=== PATIENT | female | born 1950 | race Caucasian/White ===

== ENCOUNTER → 2023-12-04 15:08 | Outpatient (REF) | payer MEDICARE, OTHER, SELFPAY | LOC: HWRAD 15:08 | PROVIDERS: ATTENDING PHYSICIAN Internal Medicine Endocrinology, Diabetes & Metabolism; FAMILY PHYSICIAN Emergency Medicine | DX: E04.2 Nontoxic multinodular goiter (principal) | CPT/HCPCS: 76536 ==

== ENCOUNTER → 2024-04-09 09:23 | Outpatient (REF) | payer MEDICARE, OTHER, SELFPAY ==
[2024-04-09 11:31] LABS: % Basophils 0.3 % (0-2); % Eosinophils 3.6 % (0-6); % Immature Granulocytes 0.5 % (0-0.5); % Lymphocytes 23.6 % (20.5-51.1); % Monocytes 8.6 % (1.7-9.3); % Neutrophils 63.4 % (42.2-75.2); Absolute Eosinophils 0.2 10^3/uL (0-0.7); Absolute Lymphocytes 1.5 10^3/uL (1.2-3.4); Absolute Monocytes 0.6 10^3/uL (0.1-0.6); Absolute Neutrophils 4.1 10^3/uL (1.4-6.5); Hematocrit 40.8 % (37.0-47.0); Hemoglobin 14.1 g/dL (12.0-16.0); Mean Corp Hgb Conc. 34.6 g/dL (33.0-37.0); Mean Corpuscular Hgb 30.3 pg (27.0-31.0); Mean Corpuscular Volume 87.7 fL (81.0-99.0); Mean Platelet Volume 10.7 fL (7.4-10.4); Nucleated Red Blood Cells % 0 %; Platelet Count 237 10^3/uL (130-400); Red Blood Cell Count 4.65 10^6/uL (4.20-5.40); White Blood Cell Count 6.4 10^3/uL (4.8-10.8)
[2024-04-09 11:55] LABS: ALT (SGPT) 24 U/L (0-35); AST (SGOT) 25 U/L (14-36); Albumin 4.3 g/dl (3.5-5.0); Alkaline Phosphatase 101 U/L (38-126); Blood Urea Nitrogen 13 mg/dl (7-17); Calcium 10.7 mg/dl (8.4-10.2); Carbon Dioxide 29 mmol/L (22-30); Chloride 105 mmol/L (98-107); Glucose 135 mg/dl (70-99); HDL Cholesterol 43 mg/dl; Iron 115 ug/dl (37-170); LDL Cholesterol, Calculated 125 mg/dl; Sodium 141 mmol/L (135-145); Total Bilirubin 0.6 mg/dl (0.2-1.3); Total Cholesterol 208 mg/dl (50-199); Total Protein 7.1 g/dl (6.3-8.2); Triglyceride 202 mg/dl (10-149); Very Low Density Lipoprotein 40 mg/dl (0-30); eGFR > 60.00
[2024-04-09 12:04] LABS: Percent Saturation 36 % (20-50); Total Iron Binding Capacity 314 ug/dl (265-497)
[2024-04-09 12:10] LABS: Vitamin D, 25-OH*** 64.4 ng/mL (30-80)
[2024-04-09 12:24] LABS: TSH Reflex To Free T4 1.74 uIU/ml (0.47-4.68)
[2024-04-09 12:43] LABS: Vitamin B12 903 pg/ml (239-931)
[2024-04-09 13:57] LABS: Glycohemoglobin (HgbA1c) 5.9 % (4.0-5.6)
== END ==
LOC: HWLAB 09:23
PROVIDERS: ATTENDING PHYSICIAN Student in an Organized Health Care Education/Training Program; FAMILY PHYSICIAN Emergency Medicine
DX: M81.0 Age-related osteoporosis without current pathological fracture (principal); I10 Essential (primary) hypertension; K21.9 Gastro-esophageal reflux disease without esophagitis; E78.5 Hyperlipidemia, unspecified; R73.03 Prediabetes; K76.0 Fatty (change of) liver, not elsewhere classified; R25.1 Tremor, unspecified
CPT/HCPCS: 36415; 80053; 80061; 82306; 82607; 82728; 83036; 83540; 83550; 84443; 85025

== ENCOUNTER → 2024-05-04 12:23 | Outpatient (REF) | payer MEDICARE, OTHER, SELFPAY | LOC: HWRAD 12:23 | PROVIDERS: ATTENDING PHYSICIAN Emergency Medicine; REFERRING PHYSICIAN Internal Medicine Endocrinology, Diabetes & Metabolism | DX: M81.0 Age-related osteoporosis without current pathological fracture (principal) | CPT/HCPCS: 77080 ==

== ENCOUNTER 2024-06-14 15:49 | Emergency (ER) | payer MEDICARE, OTHER, SELFPAY ==
[2024-06-14 15:52] VITALS: BP 136/98
[2024-06-14 16:07] LABS: % Basophils 0.1 % (0-2); % Eosinophils 2.7 % (0-6); % Immature Granulocytes 0.4 % (0-0.5); % Lymphocytes 28.6 % (20.5-51.1); % Monocytes 7.3 % (1.7-9.3); % Neutrophils 60.9 % (42.2-75.2); Absolute Eosinophils 0.2 10^3/uL (0-0.7); Absolute Monocytes 0.5 10^3/uL (0.1-0.6); Absolute Neutrophils 4.2 10^3/uL (1.4-6.5); Hematocrit 38.4 % (37.0-47.0); Hemoglobin 13.4 g/dL (12.0-16.0); Mean Corp Hgb Conc. 34.9 g/dL (33.0-37.0); Mean Corpuscular Hgb 29.1 pg (27.0-31.0); Mean Corpuscular Volume 83.5 fL (81.0-99.0); Mean Platelet Volume 9.6 fL (7.4-10.4); Nucleated Red Blood Cells % 0 %; Platelet Count 276 10^3/uL (130-400); Red Cell Dist. Width 12.9 % (11.5-14.5)
[2024-06-14 16:24] LABS: ALT (SGPT) 30 U/L (0-35); AST (SGOT) 31 U/L (14-36); Albumin 4.4 g/dl (3.5-5.0); Alkaline Phosphatase 89 U/L (38-126); Blood Urea Nitrogen 13 mg/dl (7-17); Calcium 10.8 mg/dl (8.4-10.2); Carbon Dioxide 28 mmol/L (22-30); Chloride 103 mmol/L (98-107); Glucose 101 mg/dl (70-99); Lipase 92 U/L (23-300); Potassium 3.9 mmol/L (3.5-5.1); Sodium 140 mmol/L (135-145); Total Bilirubin 0.6 mg/dl (0.2-1.3); Total Protein 7.1 g/dl (6.3-8.2); eGFR > 60.00
[2024-06-14 18:21] VITALS: BP 162/71
--- NOTE | 2024-06-14 18:59 | ED.GENMED ---
History of Present Illness
General
Chief Complaint: Abdominal Pain
Time Seen by Provider: 06/14/24 18:59
History of Present Illness
History of Present Illness:
HPI: Patient presents with abdominal pain. This has been ongoing for the past few weeks. Over the past few days she has felt worse. Last week she had some blood in her stool but none currently. She has more pain when she eats. She has had
formed stools and has not had diarrhea. This does not necessarily feel at the time that she has had diverticulitis or ureteral colic but feels somewhat like the time she had colitis. She also mentions that she felt bloated and feels that she has
had some abdominal does. She has never had a bowel obstruction. She is known to Dr. Dowd and has had frequent colonoscopies as she is high risk due to family history of colon cancer.
EXAM:
GENERAL: Well appearing in no distress
HEENT: Moist oral mucosa
CARDIOVASCULAR: No murmurs, normal heart rate, regular rhythm, No chest wall tenderness
PULMONARY: No respiratory distress, breath sounds are clear and equal
ABDOMEN: Soft with no peritoneal signs, mild diffuse abdominal tenderness, no significant distention
NEUROLOGIC: Excellent strength all extremities, no coordination deficits
PSYCHIATRIC: Appropriate mental status, normal insight and judgement
EXTREMITIES: Nontender, no edema, moves all extremities equally
SKIN: No rash, no lesions
TIME OF INITIAL ENCOUNTER: 7:30 PM
NUMBER AND COMPLEXITY OF PROBLEMS ADDRESSED AT THE ENCOUNTER
� Chronic conditions affecting care: Has had colitis, diverticulitis and has had hysterectomy and ureteral stone
� Acute Exacerbation and/or Progression of Chronic Illness: This is an acute problem
� Differential Diagnosis includes: Diverticulitis, ureteral stones, colitis, nonspecific abdominal pain, viral syndrome
AMOUNT AND/OR COMPLEXITY OF DATA TO BE REVIEWED AND ANALYZED
� I performed an independent evaluation of and my interpretation is:
EKG:
CT: CT imaging personally reviewed and agree with radiologist interpretation
X-rays:
Laboratory Studies: White count 7.0, hemoglobin normal, chemistries and lipase and LFTs unremarkable.
Other:
� Review of other/old records: I reviewed records. The patient went to the OR in September 2023 with a left-sided ureteral stone and had stent placement at that time. She was also admitted in May 2023 with diverticulitis.
� Clinical information was obtained by an independent historian: I spoke to the
� Prescriptions/Medications Considered but not given:
� Further testing considered but not performed:
RISK OF COMPLICATIONS AND/OR MORBIDITY OR MORTALITY OF PATIENT MANAGEMENT
� Social determinants of health affecting care: Lives at home
� Discussion with other providers:
� Escalation of care including admission/observation vs risk of discharge considered: Although labs are normal, will obtain CT imaging as her symptoms have been worsening. We also tried Toradol, IV fluids, and Zofran.
Gallstones noted as well as fatty liver but no clear evidence for acute diverticulitis. On reassessment at 9:55 PM, the patient does feel improved after Toradol, fluids, and Zofran. She says she has Zofran at home. She appears comfortable prior
to discharge.
Past History
Past History
ED Past Medical History: Cancer (Breast CA), COPD, GERD, HTN and Other (Diverticulitis, kidney stones, Bronchitis, Veritigo, Colitis)
ED Past Surgical History: , Gynecological (partial Hysterectomy. Right breast Lumpectomy) and Urological
Social History
Tobacco: Former smoker
Alcohol: Occasional
Drug: None
Personal:
Living: with family
Employment: Employed (manager managed care)
Family History
Family History: Other (Noncontributory)
Phy Exam
Physical Exam
Physical Exam:
See HPI
Course
Orders/Labs/Results
Orders:
Orders
06/14/24 15:55
Electrocardiogram (*1) Urgent
Reason for Study: Abdominal Pain
EKG- Treatment ONCE
06/14/24 15:59
Complete Blood Count/With Diff Urgent
Comprehensive Metabolic Panel Urgent
Lipase Urgent
06/14/24 19:40
CT Abd/pelvis W Iv Cont Urgent
Comment:
Reason For Exam: diffuse abd pain
0.9% Sodium Chloride 1000 ml [Nss] 1,000 ml IV BOLUS
Ketorolac [Toradol] 15 mg IV NOW STA
Ondansetron Injectable [Zofran] 4 mg IV NOW STA
06/14/24 21:30
Pantoprazole 80 mg/100 ml Nss [Protonix] 80 mg in 100 ml IV Q10H
Abnormal Lab Results
06/14/24
15:59
Glucose 101 H mg/dl
(70-99)
Calcium 10.8 H mg/dl
(8.4-10.2)
06/14/24 15:59
06/14/24 15:59
Vital Signs
Initial and Last Documented VS:
Initial Vital Signs
Temp Pulse Resp BP Pulse Ox
98.7 F 72 18 136/98 100
06/14/24 15:52 06/14/24 15:52 06/14/24 15:52 06/14/24 15:52 06/14/24 15:52
Last Documented Vital Signs
Temp Pulse Resp BP Pulse Ox
98.7 F 64 13 157/72 99
06/14/24 15:52 06/14/24 19:30 06/14/24 19:30 06/14/24 19:26 06/14/24 19:30
*Critical Care Note
Total Time (30-74mins, 75-104mins- exclusive of procedures): Not Applicable
ED Attending Note
-
Portions of this chart may have been created with voice recognition software.� Occasional wrong word or��sound alike� substitutions may have occurred due to the inherent limitations of voice recognition software.
Discharge Plan
Departure
Prescriptions:
No Action
omeprazole 40 MG capsule,delayed release(DR/EC)
40 mg PO DAILY
aspirin 81 MG tablet,delayed release (DR/EC)
81 mg PO QPM
lorazepam 0.5 MG tablet
0.25 mg PO HSPRN PRN (Reason: sleep )
Patient Comments:
03/05/2022: last filled 01/22/22, 30 tabs for 60 days from [facility]#[id number]
Rx Instructions:
filled on 04/14/23 #30
ascorbic acid (vitamin C) [Vitamin C] 1,000 mg Tablet
1 g PO QPM
polyethylene glycol 3350 [Miralax] 17 gram Powder In Packet
17 g PO DIRECTED
Rx Instructions:
twice per week
sucralfate 1 gram Tablet
1 g PO BIDPRN PRN (Reason: stomach ulcer)
amlodipine 2.5 mg Tablet
2.5 mg PO QPM
milk thistle 150 mg Capsule
250 mg PO QPM
calcium carbonate [Calcium 600] 600 mg calcium (1,500 mg) Tablet
1,200 mg PO QPM
meclizine 25 mg Tablet
25 mg PO BIDPRN PRN (Reason: vertigo)
hyoscyamine sulfate 0.125 mg Tablet
0.125 mg PO QIDPRN PRN (Reason: intestinal spasms)
losartan 25 mg Tablet
25 mg PO QPM
vitamin B complex Tablet
1 tab PO DAILY
albuterol sulfate 90 mcg/actuation Hfa Aerosol Inhaler
2 puff INHALATION R Q6HPRN PRN (Reason: bronchitis)
docusate sodium 250 mg Capsule
250 mg PO QPM
fluticasone propionate [Flonase Allergy Relief] 50 mcg/actuation [place],Suspension
1 spray INTRANASAL DAILY
cranberry 500 mg Capsule
4,200 mg PO QPM
cinnamon bark [Cinnamon] 500 mg Capsule
500 mg PO QPM
Visbiome 112.5 billion cell Capsule
1 cap PO DAILY
red yeast rice 600 mg Tablet
600 mg PO QPM
calcium carb-mag ox-zinc sulf 333-133-5 mg Tablet
1 tab PO QPM
vitamin D3-vitamin K2 1,250-200 mcg Capsule
1 cap PO QPM
Elderberry Immune Health 45-3.75-50 mg Tablet,Chewable
1 tab PO QPM
oxycodone-acetaminophen [Percocet] 5-325 mg Tablet
1 tab PO Q6HPRN PRN (Reason: pain) Qty: 12 0RF
tamsulosin [Flomax] 0.4 mg Capsule
0.4 mg PO DAILY Qty: 7 0RF
ondansetron 4 mg Tablet,Disintegrating
4 mg PO TIDPRN PRN (Reason: nausea/vomiting) Qty: 12 0RF
fluticasone propion-salmeterol [Wixela Inhub] 250-50 mcg/dose Blister With Device
1 inh INHALATION PRN PRN (Reason: asthma)
Benefiber (guar gum) Packet
2 tbsp PO DIRECTED
Rx Instructions:
three times per week
Myrbetriq 50 mg Tablet Extended Release 24 Hr
50 mg PO DAILY
Referrals:
Armida Gamboa MD [Family Provider] -
Interventions
Interventions:
*Risk Screen - Suicide Last Done: 06/14/24 15:52
*General Assessment Last Done: 06/14/24 15:52
*Neglect/Abuse Screening Last Done: 06/14/24 15:52
ED- Fall Risk Assessment Last Done: 06/14/24 19:22
*ED COVID-19 Vaccine History Last Done: 06/14/24 15:52
JJ-Cnxryi-Qdxzyperht Assessment Last Done: 06/14/24 19:22
Discharge Date and Time
Print Language: GABONESE
[2024-06-14 19:22] VITALS: BMI 29.7
[2024-06-14 19:26] VITALS: BP 157/72
[2024-06-14] MEDS: ZOFRAN 4 MG IV (20:34)
[2024-06-14] MEDS: NSS 1000 IV (20:34)
[2024-06-14] MEDS: TORADOL 15 MG IV (20:34)
[2024-06-14 22:16] VITALS: BP 141/71
== END 2024-06-14 22:26 | disposition home or self-care (01) ==
LOC: EMR 15:49
PROVIDERS: Emergency Medicine; EMERGENCY PHYSICIAN Emergency Medicine; FAMILY PHYSICIAN Emergency Medicine
DX: R10.9 Unspecified abdominal pain (principal); I10 Essential (primary) hypertension; J44.9 Chronic obstructive pulmonary disease, unspecified; K21.9 Gastro-esophageal reflux disease without esophagitis; Z80.0 Family history of malignant neoplasm of digestive organs; Z85.3 Personal history of malignant neoplasm of breast; Z87.442 Personal history of urinary calculi; Z87.891 Personal history of nicotine dependence
CPT/HCPCS: 99284; 96374; 96375; 96361; 74177; 80053; 83690; 85025; 93005; Q9967

== ENCOUNTER → 2024-07-30 11:50 | Outpatient (REF) | payer MEDICARE, OTHER, SELFPAY | LOC: WDC 11:50 | PROVIDERS: ATTENDING PHYSICIAN Internal Medicine Hematology & Oncology; FAMILY PHYSICIAN Emergency Medicine | DX: Z12.31 Encounter for screening mammogram for malignant neoplasm of breast (principal) | CPT/HCPCS: 77063; 77067 ==

== ENCOUNTER 2024-09-03 15:28 | Emergency (ER) | payer MEDICARE, OTHER, SELFPAY ==
[2024-09-03 15:54] VITALS: BP 129/82
[2024-09-03 16:18] LABS: % Basophils 0.5 % (0-2); % Eosinophils 2.5 % (0-6); % Immature Granulocytes 0.4 % (0-0.5); % Lymphocytes 22.5 % (20.5-51.1); % Monocytes 8.3 % (1.7-9.3); % Neutrophils 65.8 % (42.2-75.2); Absolute Eosinophils 0.2 10^3/uL (0-0.7); Absolute Lymphocytes 1.7 10^3/uL (1.2-3.4); Absolute Monocytes 0.6 10^3/uL (0.1-0.6); Absolute Neutrophils 4.9 10^3/uL (1.4-6.5); Hematocrit 40.6 % (37.0-47.0); Hemoglobin 14.2 g/dL (12.0-16.0); Mean Corpuscular Hgb 30.1 pg (27.0-31.0); Mean Platelet Volume 10.3 fL (7.4-10.4); Nucleated Red Blood Cells % 0 %; Platelet Count 294 10^3/uL (130-400); Red Blood Cell Count 4.72 10^6/uL (4.20-5.40); Red Cell Dist. Width 12.8 % (11.5-14.5); White Blood Cell Count 7.5 10^3/uL (4.8-10.8)
[2024-09-03 16:21] LABS: Urine Albumin Trace (Neg - Trace); Urine Bilirubin Negative (Negative); Urine Character Clear (Clear); Urine Color Yellow; Urine Glucose Negative (Negative); Urine Ketone Negative (Negative); Urine Leukocyte Trace (Negative); Urine Nitrite Negative (Negative); Urine Occult Blood Negative (Negative); Urine Urobilinogen Negative (Neg - 1+)
[2024-09-03 16:39] LABS: Urine Hyaline Cast >15 /LPF (0-2); Urine Squamous Cell 0-2 /LPF (Few)
[2024-09-03 16:41] LABS: Urine Red Blood Cell 0-2 /HPF (0-2)
[2024-09-03 16:43] LABS: ALT (SGPT) 27 U/L (0-35); AST (SGOT) 27 U/L (14-36); Albumin 4.6 g/dl (3.5-5.0); Alkaline Phosphatase 87 U/L (38-126); Blood Urea Nitrogen 12 mg/dl (7-17); Calcium 10.7 mg/dl (8.4-10.2); Carbon Dioxide 31 mmol/L (22-30); Chloride 103 mmol/L (98-107); Glucose 111 mg/dl (70-99); Potassium 3.6 mmol/L (3.5-5.1); Sodium 139 mmol/L (135-145); Total Bilirubin 0.5 mg/dl (0.2-1.3); Total Protein 7.3 g/dl (6.3-8.2); Urine Bacteria Many (Negative); eGFR > 60.00
--- NOTE | 2024-09-03 20:01 | ED.GENMED ---
History of Present Illness
General
Chief Complaint: Flank Pain
Source: patient
Exam Limitations: none
Time Seen by Provider: 09/03/24 19:25
History of Present Illness
History of Present Illness:
This is a 74 year old female that comes in with c/o left flank pain. States that she has pain in her back that comes around to the abd. States that this started this morning. States that she is nauseated and that she did have diarrhea last night.
Denies any fever, chills, chest pain, SOB, vomiting, headache, dizziness, urinary burning.
Past History
Past History
ED Past Medical History: Cancer ( Right Breast CA), COPD, GERD, HTN and Other (Diverticulitis, kidney stones, Asthmatic Bronchitis, Vertigo, Colitis, Back pain, Dizziness, GI bleeding, )
ED Past Surgical History: , Gynecological (partial Hysterectomy. Right breast Lumpectomy), Orthopedic (Left elbow susrgery, ), Urological (Bladder sling, Uretoscope with stent) and Other (Cataracts dallin, )
Social History
Tobacco: Former smoker
Alcohol: None
Drug: None
Personal:
Living: with family
Employment: Employed (audio/visual manager)
Family History
Family History: Other (Noncontributory)
Review of Systems
Review of Systems
All Other Systems: ROS reviewed and negative except as documented in HPI and ROS
Constitutional: Reports no symptoms; Denies fever or chills
EENT: Reports no symptoms
Respiratory: Reports no symptoms; Denies cough or trouble breathing
Cardiac: Reports no symptoms; Denies chest pain
ABD/GI: Reports abdominal pain (Flank around to left abd), nausea and diarrhea; Denies vomiting
: Reports no symptoms; Denies dysuria, frequency or urgency
Musculoskeletal: Reports no symptoms
Skin: Reports no symptoms
Neurological: Reports no symptoms; Denies dizzy or headache
Psychiatric: Reports no symptoms
Phy Exam
General Physical Exam
General Presentation: well appearing and no apparent distress
General age: appears stated age
General Skin: warm and dry
General Habitus: elderly
General Mental: alert
General Hydration: dry mucous membranes
ENT Exam
ENT Exam: TM's normal, pharynx normal and neck supple
Eye Exam
Eye Exam: EOMI
Cardiovascular Exam
Cardiovascular Exam: regular rate/rhythm, no edema and normal peripheral pulses
Pulmonary Exam
Pulmonary Exam: lungs clear, no respiratory distress, no rales, chest non tender, no crackles, no rhonchi, no wheezing and no cough
Gastrointestinal Exam
Gastrointestinal Exam: normal bowel sounds, soft, no organomegaly, no pulsatile mass, non distended and tender (Slight tenderness left sided abd with palpation)
Musculoskeletal Exam
Musculoskeletal Exam: full ROM and no edema
Skin Exam
Skin Exam: normal color, warm/dry, no rash and no petechia
Psychiatric Exam
Psychiatric Exam: normal mood/affect
Course
Orders/Labs/Results
Orders:
Orders
09/03/24 16:09
Complete Blood Count/With Diff Urgent
Comprehensive Metabolic Panel Urgent
Urinalysis Reflex To Culture Urgent
Date Specimen was Collected: 09/03/24
Time Specimen was Collected: 15:57
Urine Microscopic Reflex Cult Urgent
Urine Culture Urgent
SANTIAGO Source: U
Specimen Description:
Date Specimen was Collected: 09/03/24
Time Specimen was Collected: 15:57
09/03/24 18:50
CT Abd/pel Without Iv Or Oral Urgent
Comment:
Reason For Exam: left flank pain
09/03/24 20:06
Acetaminophen [Tylenol] 1,000 mg PO NOW STA
Ibuprofen [Motrin] 600 mg PO NOW STA
Abnormal Lab Results
09/03/24
16:09
Carbon Dioxide 31 H mmol/L
(22-30)
Glucose 111 H mg/dl
(70-99)
Calcium 10.7 H mg/dl
(8.4-10.2)
Leukocyte Esterase Rfl Trace A
(Negative)
Urine Bacteria (Reflex) Many A
(Negative)
09/03/24 16:09
09/03/24 16:09
Carbon dioxide very slightly elevated. Glucose nonfasting. Calcium slightly elevated. Urine negative for infection.
Vital Signs
Initial and Last Documented VS:
Initial Vital Signs
Temp Pulse Resp BP Pulse Ox
97.7 F 73 18 129/82 99
09/03/24 15:54 09/03/24 15:54 09/03/24 15:54 09/03/24 15:54 09/03/24 15:54
Last Documented Vital Signs
Temp Pulse Resp BP Pulse Ox
97.6 F 67 18 174/85 99
09/03/24 20:24 09/03/24 20:24 09/03/24 20:24 09/03/24 20:24 09/03/24 20:24
MDM/Problems Addressed
Differential Diagnosis Includes:
Back pain, Renal calculus
MDM/Problems Addressed:
This is a 74 year old female that comes in with c/o left sided back pain that comes around to the abd. States that this started this morning. Patient is nauseated and had a little diarrhea last night.
Will check labs, CT scan and medicate for pain.
Back to see patient. Explained that her CT scan shows a 1mm stone in the left kidney but there is no hydronephrosis. Her urine is negative for infection. Explained that this pain may be coming form her back. Patient then states that she did fall 4
days ago but landed on the right side. Explained that she may have just tweaked her back at that time and is not having pain. Patient to use Tylenol 1000mg every 6 hours for pain and Alternate with Ibuprofen 600mg every 6 hours with food. Patient
can use heat or ice to her back. Patient to follow up with the family doctor. Return with any concerns.
Chronic conditions affecting care:
Chronic back issues, Renal calculus,
Acute Exacerbation and/or Progression of Chronic Illness:
history of Renal calculus and chronic back issues.
*Radiology
Radiology exam reviewed: radiology read reviewed (CT-No hyddronephrosis. 1mm nonobstruacting stone in the psuperior pole of the left kidney. There is mild urinary bladder wall thickening which may be secondary to under distention, however can be
seen with cystitis. Recommend correlation with urinalysis. Hepatic steatosis. Cholelithiasis. Colonic ) and other (CT cont- colonic diverticulosis. )
*Pulse Oximetry
Patient hypoxic: no
*EKG
Interpreted by ED Provider?: NA
Rate: EKG- N/A
*Metaphysicist Interpretation
Rate: Metaphysicist- N/A
*Critical Care Note
Total Time (30-74mins, 75-104mins- exclusive of procedures): Not Applicable
ED Attending Note
-
Portions of this chart may have been created with voice recognition software.� Occasional wrong word or��sound alike� substitutions may have occurred due to the inherent limitations of voice recognition software.
Discharge Plan
Departure
Patient Disposition: Home (Routine Discharge)
Date of Disposition: 09/03/24
Time of Disposition: 20:54
Patient with high blood pressure during this ER visit?: Yes
Condition: Good
Covid-19: Not Applicable
Discharge Problem:
Acute left-sided back pain
Instructions: Back Pain, BLOOD PRESSURE
Prescriptions:
No Action
omeprazole 40 MG capsule,delayed release(DR/EC)
40 mg PO DAILY
aspirin 81 MG tablet,delayed release (DR/EC)
81 mg PO QPM
lorazepam 0.5 MG tablet
0.25 mg PO HSPRN PRN (Reason: sleep )
Patient Comments:
03/05/2022: last filled 01/22/22, 30 tabs for 60 days from [facility]#[id number]
Rx Instructions:
filled on 04/14/23 #30
ascorbic acid (vitamin C) [Vitamin C] 1,000 mg Tablet
1 g PO QPM
polyethylene glycol 3350 [Miralax] 17 gram Powder In Packet
17 g PO DIRECTED
Rx Instructions:
twice per week
sucralfate 1 gram Tablet
1 g PO BIDPRN PRN (Reason: stomach ulcer)
amlodipine 2.5 mg Tablet
2.5 mg PO QPM
milk thistle 150 mg Capsule
250 mg PO QPM
calcium carbonate [Calcium 600] 600 mg calcium (1,500 mg) Tablet
1,200 mg PO QPM
meclizine 25 mg Tablet
25 mg PO BIDPRN PRN (Reason: vertigo)
hyoscyamine sulfate 0.125 mg Tablet
0.125 mg PO QIDPRN PRN (Reason: intestinal spasms)
losartan 25 mg Tablet
25 mg PO QPM
vitamin B complex Tablet
1 tab PO DAILY
albuterol sulfate 90 mcg/actuation Hfa Aerosol Inhaler
2 puff INHALATION R Q6HPRN PRN (Reason: bronchitis)
docusate sodium 250 mg Capsule
250 mg PO QPM
fluticasone propionate [Flonase Allergy Relief] 50 mcg/actuation [place],Suspension
1 spray INTRANASAL DAILY
cranberry 500 mg Capsule
4,200 mg PO QPM
cinnamon bark [Cinnamon] 500 mg Capsule
500 mg PO QPM
Visbiome 112.5 billion cell Capsule
1 cap PO DAILY
red yeast rice 600 mg Tablet
600 mg PO QPM
calcium carb-mag ox-zinc sulf 333-133-5 mg Tablet
1 tab PO QPM
vitamin D3-vitamin K2 1,250-200 mcg Capsule
1 cap PO QPM
[place] Immune Health 45-3.75-50 mg Tablet,Chewable
1 tab PO QPM
oxycodone-acetaminophen [Percocet] 5-325 mg Tablet
1 tab PO Q6HPRN PRN (Reason: pain) Qty: 12 0RF
tamsulosin [Flomax] 0.4 mg Capsule
0.4 mg PO DAILY Qty: 7 0RF
ondansetron 4 mg Tablet,Disintegrating
4 mg PO TIDPRN PRN (Reason: nausea/vomiting) Qty: 12 0RF
fluticasone propion-salmeterol [Wixela Inhub] 250-50 mcg/dose Blister With Device
1 inh INHALATION PRN PRN (Reason: asthma)
Benefiber (guar gum) Packet
2 tbsp PO DIRECTED
Rx Instructions:
three times per week
Myrbetriq 50 mg Tablet Extended Release 24 Hr
50 mg PO DAILY
Referrals:
Armida Gamboa MD [Family Provider] - Follow up in 2-3 days
Activity Restrictions/Additional Instructions:
As discussed, your urine is negative for infection. Your CT shows that there is a 1mm stone in the kidney but there is no hydronephrosis. This does not normally cause pain unless it starts to move. Your pain may be coming from the back. Please use
Tylenol 1000mge very 6 hours for pain and alternate with Ibuprofen 600mg every 6 hours with food. So if you take Tylenol at 9am use the Ibuprofen at 12 noon and the Tylenol at 3pm and Ibuprofen at 6pm. You may also use heat or ice to the back which
ever makes you feel better. Follow up with the family doctor for recheck. IF YOU HAVE INCREASED OR CHANGING PAIN, OR YOU HAVE ANY OTHER CONCERNS PLEASE RETURN TO THE EMERGENCY ROOM.
Interventions
Interventions:
*Risk Screen - Suicide Last Done: 09/03/24 20:25
*General Assessment Last Done: 09/03/24 20:25
*Neglect/Abuse Screening Last Done: 09/03/24 20:25
*ED COVID-19 Vaccine History Last Done: 09/03/24 20:25
VT-Abxzud-Dmthsgjqxk Assessment Last Done: 09/03/24 20:25
ED-Female Genitourinary Assessment Last Done: 09/03/24 20:25
Discharge Date and Time
Print Language: GUAMANIAN
[2024-09-03] MEDS: TYLENOL 1000 MG PO (20:19)
[2024-09-03] MEDS: MOTRIN 600 MG PO (20:20)
[2024-09-03 20:24] VITALS: BP 174/85
== END 2024-09-03 21:11 | disposition home or self-care (01) ==
LOC: EMR 15:28
PROVIDERS: Emergency Medicine; EMERGENCY PHYSICIAN Emergency Medicine; FAMILY PHYSICIAN Emergency Medicine
DX: M54.9 Dorsalgia, unspecified (principal); I10 Essential (primary) hypertension; N20.0 Calculus of kidney; Z87.891 Personal history of nicotine dependence
CPT/HCPCS: 99284; 74176; 80053; 81003; 81015; 85025; 87086

== ENCOUNTER → 2025-01-24 10:30 | Outpatient (REF) | payer MEDICARE, OTHER, SELFPAY ==
[2025-01-24 12:03] LABS: % Basophils 0.5 % (0-2); % Eosinophils 2.6 % (0-6); % Immature Granulocytes 0.5 % (0-0.5); % Lymphocytes 23.5 % (20.5-51.1); % Monocytes 7.2 % (1.7-9.3); % Neutrophils 65.7 % (42.2-75.2); Absolute Eosinophils 0.2 10^3/uL (0-0.7); Absolute Lymphocytes 1.4 10^3/uL (1.2-3.4); Absolute Monocytes 0.4 10^3/uL (0.1-0.6); Hematocrit 40.9 % (37.0-47.0); Mean Corp Hgb Conc. 34.2 g/dL (33.0-37.0); Mean Corpuscular Hgb 29.5 pg (27.0-31.0); Mean Corpuscular Volume 86.3 fL (81.0-99.0); Mean Platelet Volume 10.8 fL (7.4-10.4); Nucleated Red Blood Cells % 0 %; Platelet Count 267 10^3/uL (130-400); Red Blood Cell Count 4.74 10^6/uL (4.20-5.40); White Blood Cell Count 6.1 10^3/uL (4.8-10.8)
[2025-01-24 12:16] LABS: Urine Albumin 1+ (Neg - Trace); Urine Bilirubin Negative (Negative); Urine Character Slightly Cloudy (Clear); Urine Color Yellow; Urine Glucose Negative (Negative); Urine Ketone Negative (Negative); Urine Leukocyte Negative (Negative); Urine Nitrite Negative (Negative); Urine Occult Blood Negative (Negative); Urine Urobilinogen Negative (Neg - 1+)
[2025-01-24 12:42] LABS: Urine Amorphous Seen; Urine Bacteria Few (Negative); Urine Red Blood Cell 0-2 /HPF (0-2)
[2025-01-24 13:15] LABS: TSH Reflex To Free T4 1.46 uIU/ml (0.47-4.68)
[2025-01-24 13:22] LABS: ALT (SGPT) 19 U/L (0-35); AST (SGOT) 18 U/L (14-36); Albumin 4.3 g/dl (3.5-5.0); Alkaline Phosphatase 85 U/L (38-126); Blood Urea Nitrogen 14 mg/dl (7-17); Calcium 9.7 mg/dl (8.4-10.2); Carbon Dioxide 26 mmol/L (22-30); Chloride 110 mmol/L (98-107); Glucose 117 mg/dl (70-99); HDL Cholesterol 36 mg/dl; LDL Cholesterol, Calculated 128 mg/dl; Potassium 4.1 mmol/L (3.5-5.1); Sodium 143 mmol/L (135-145); Total Bilirubin 0.5 mg/dl (0.2-1.3); Total Cholesterol 184 mg/dl (50-199); Triglyceride 102 mg/dl (10-149); Very Low Density Lipoprotein 20 mg/dl (0-30); eGFR > 60.00
[2025-01-25 03:09] LABS: Glycohemoglobin (HgbA1c) 5.9 % (4.0-5.6)
== END ==
LOC: HWLAB 10:30
PROVIDERS: ATTENDING PHYSICIAN Emergency Medicine
DX: Z00.00 Encounter for general adult medical examination without abnormal findings (principal); Z85.3 Personal history of malignant neoplasm of breast; M81.0 Age-related osteoporosis without current pathological fracture; K21.9 Gastro-esophageal reflux disease without esophagitis; E78.5 Hyperlipidemia, unspecified; J45.40 Moderate persistent asthma, uncomplicated; K76.0 Fatty (change of) liver, not elsewhere classified; R73.03 Prediabetes; Z79.899 Other long term (current) drug therapy
CPT/HCPCS: 36415; 80053; 80061; 81003; 81015; 83036; 84443; 85025

== ENCOUNTER 2025-01-28 16:54 | Emergency (ER) | payer MEDICARE, OTHER, SELFPAY ==
[2025-01-28 16:55] VITALS: BP 152/116
--- NOTE | 2025-01-28 17:12 | ED.GENMED ---
History of Present Illness
<Diana Pastrana, CARPET TILE LAYER - Last Filed: 01/29/25 15:56>
General
Chief Complaint: Abdominal Pain
Source: patient
Exam Limitations: none
Time Seen by Provider: 01/28/25 17:11
Nursing documentation reviewed up to this point in time: agreed with
History of Present Illness
History of Present Illness:
74-year-old female with history of migraines, HTN, diverticulitis, renal stones, right breast cancer with right lumpectomy, presents for Left side abdominal pain and bloating, sudden onset this a.m. getting worse throughout the day. Denies n/v. Had
normal BM this a.m.
Past History
<Diana Pastrana, CARPET TILE LAYER - Last Filed: 01/29/25 15:56>
Past History
ED Past Medical History: Cancer ( Right Breast CA), COPD, GERD, HTN and Other (Diverticulitis, kidney stones, Asthmatic Bronchitis, Vertigo, Colitis, Back pain, Dizziness, GI bleeding, )
ED Past Surgical History: , Gynecological (partial Hysterectomy. Right breast Lumpectomy), Orthopedic (Left elbow susrgery, ), Urological (Bladder sling, Uretoscope with stent) and Other (Cataracts dallin, )
Social History
Tobacco: Former smoker
Alcohol: None
Drug: None
Personal:
Living: with family
Employment: Employed (retail assistant manager)
Family History
Family History: Other (Noncontributory)
Review of Systems
<Diana Pastrana, CARPET TILE LAYER - Last Filed: 01/29/25 15:56>
Review of Systems
Allergies reviewed?: Yes
All Other Systems: ROS reviewed and negative except as documented in HPI and ROS
ABD/GI: Reports abdominal pain; Denies nausea, vomiting, diarrhea, constipated, bloody stools or black stools
Phy Exam
<Diana Pastrana, CARPET TILE LAYER - Last Filed: 01/29/25 15:56>
Physical Exam
Physical Exam:
GENERAL: No acute distress. A&Ox3.
CONSTITUTIONAL: Afebrile.
EYES: clear, conjunctivae normal
ENMT: moist mucus membranes
RESPIRATORY: Regular respirations, nonlabored, lungs clear.
CARDIOVASCULAR: Regular rate and rhythm, no murmurs, no rubs.
GI: Mildly distended, generally tender, normal BS
MUSCULOSKELETAL: Moves with ease. Well perfused.
SKIN: Warm, dry, pink
PSYCH: Normal mood and affect. Well kept, interactive and appropriate
NEUROLOGIC: Awake, alert and oriented. No focal neurological deficits
Course
<Diana Pastrana, CARPET TILE LAYER - Last Filed: 01/29/25 15:56>
Orders/Labs/Results
Orders:
Orders
01/28/25 17:23
CT Abd/Pel (IV only)-[facility] only Urgent
Comment:
Reason For Exam: Left-sided abdominal pain, history of diverticulit
0.9% Sodium Chloride 500 ml [Nss] 500 ml IV BOLUS
01/28/25 17:24
HYDROmorphone [Dilaudid] 0.5 mg IV NOW STA
Ondansetron Injectable [Zofran] 4 mg IV NOW STA
01/28/25 18:22
Complete Blood Count/With Diff Urgent
Comprehensive Metabolic Panel Urgent
Lipase Urgent
01/28/25 20:10
Cefdinir [Omnicef] 300 mg PO NOW STA
MetroNIDAZOLE [Flagyl] 500 mg PO NOW STA
01/28/25 20:11
Ibuprofen [Motrin] 600 mg PO NOW STA
Abnormal Lab Results
01/28/25
18:22
WBC 12.3 H 10^3/uL
(4.8-10.8)
Abs Immat Gran (auto) 0.1 H 10^3/uL
(0-0.05)
Absolute Neuts (auto) 9.3 H 10^3/uL
(1.4-6.5)
Absolute Monos (auto) 1.0 H 10^3/uL
(0.1-0.6)
Neutrophils % 75.8 H %
(42.2-75.2)
Lymphocytes % 14.6 L %
(20.5-51.1)
Chloride 108 H mmol/L
(98-107)
Creatinine 0.5 L mg/dL
(0.6-1.0)
Glucose 104 H mg/dl
(70-99)
Calcium 10.8 H mg/dl
(8.4-10.2)
01/28/25 18:22
01/28/25 18:22
Vital Signs
Initial and Last Documented VS:
Initial Vital Signs
Temp Pulse Resp BP Pulse Ox
97.6 F 76 20 152/116 99
01/28/25 16:55 01/28/25 16:55 01/28/25 16:55 01/28/25 16:55 01/28/25 16:55
Last Documented Vital Signs
Temp Pulse Resp BP Pulse Ox
97.6 F 76 16 150/91 98
01/28/25 16:55 01/28/25 20:28 01/28/25 20:28 01/28/25 20:28 01/28/25 20:28
<Eliu Garza PA-C - Last Filed: 01/28/25 20:36>
Orders/Labs/Results
Orders:
Orders
01/28/25 17:23
CT Abd/Pel (IV only)-[facility] only Urgent
Comment:
Reason For Exam: Left-sided abdominal pain, history of diverticulit
0.9% Sodium Chloride 500 ml [Nss] 500 ml IV BOLUS
01/28/25 17:24
HYDROmorphone [Dilaudid] 0.5 mg IV NOW STA
Ondansetron Injectable [Zofran] 4 mg IV NOW STA
01/28/25 18:22
Complete Blood Count/With Diff Urgent
Comprehensive Metabolic Panel Urgent
Lipase Urgent
01/28/25 20:10
Cefdinir [Omnicef] 300 mg PO NOW STA
MetroNIDAZOLE [Flagyl] 500 mg PO NOW STA
01/28/25 20:11
Ibuprofen [Motrin] 600 mg PO NOW STA
Abnormal Lab Results
01/28/25
18:22
WBC 12.3 H 10^3/uL
(4.8-10.8)
Abs Immat Gran (auto) 0.1 H 10^3/uL
(0-0.05)
Absolute Neuts (auto) 9.3 H 10^3/uL
(1.4-6.5)
Absolute Monos (auto) 1.0 H 10^3/uL
(0.1-0.6)
Neutrophils % 75.8 H %
(42.2-75.2)
Lymphocytes % 14.6 L %
(20.5-51.1)
Chloride 108 H mmol/L
(98-107)
Creatinine 0.5 L mg/dL
(0.6-1.0)
Glucose 104 H mg/dl
(70-99)
Calcium 10.8 H mg/dl
(8.4-10.2)
01/28/25 18:22
01/28/25 18:22
Vital Signs
Initial and Last Documented VS:
Initial Vital Signs
Temp Pulse Resp BP Pulse Ox
97.6 F 76 20 152/116 99
01/28/25 16:55 01/28/25 16:55 01/28/25 16:55 01/28/25 16:55 01/28/25 16:55
Last Documented Vital Signs
Temp Pulse Resp BP Pulse Ox
97.6 F 76 16 150/91 98
01/28/25 16:55 01/28/25 20:28 01/28/25 20:28 01/28/25 20:28 01/28/25 20:28
<Diana Pastrana, CARPET TILE LAYER - Last Filed: 01/29/25 15:56>
MDM/Problems Addressed
Differential Diagnosis Includes:
Diverticulitis, Colitis
MDM/Problems Addressed:
74-year-old female with history of migraines, HTN, diverticulitis, renal stones, right breast cancer with right lumpectomy, presents for Left side abdominal pain and bloating, sudden onset this a.m. getting worse throughout the day. Denies n/v. Had
normal BM this a.m.
Afebrile, NAD
1850
CBC: WBC 12.3
CMP: No clinically significant abnormality
Case discussed with KAT Traylor who will assume care from this point
Abd CT pending
<Eliu Garza PA-C - Last Filed: 01/28/25 20:36>
*Critical Care Note
Total Time (30-74mins, 75-104mins- exclusive of procedures): Not Applicable
<Eliu Garza PA-C - Last Filed: 01/28/25 20:36>
Patient Management
Escalation/DeEscalation of care consider admission/obs:
Patient CT scan shows acute uncomplicated sigmoid diverticulitis. No abscess or perforation. Other incidental findings noted and discussed with the patient. Patient does feel comfortable being discharged home. Due to her allergies decision was
made to start patient on cefdinir and Flagyl. Patient has been admitted before and this was IDs recommendation. Patient aware of return precautions. Otherwise stable for discharge home.
ED Attending Note
<Diana Pastrana CARPET TILE LAYER - Last Filed: 01/29/25 15:56>
-
Portions of this chart may have been created with voice recognition software.� Occasional wrong word or��sound alike� substitutions may have occurred due to the inherent limitations of voice recognition software.
Discharge Plan
Departure
Patient Disposition: Home (Routine Discharge)
Date of Disposition: 01/28/25
Time of Disposition: 20:07
Patient with high blood pressure during this ER visit?: Yes
Discharge Problem:
Diverticulitis of sigmoid colon
Instructions: Diverticulitis (DC)
Prescriptions:
New
cefdinir 300 mg capsule
300 mg PO BID 10 Days Qty: 20 0RF
metronidazole 500 mg tablet
500 mg PO BID 10 Days Qty: 20 0RF
oxycodone-acetaminophen [Percocet] 5-325 mg tablet
1 tab PO Q6HPRN PRN (Reason: pain) Qty: 8 0RF
No Action
omeprazole 40 MG capsule,delayed release(DR/EC)
40 mg PO DAILY
aspirin 81 MG tablet,delayed release (DR/EC)
81 mg PO QPM
lorazepam 0.5 MG tablet
0.25 mg PO HSPRN PRN (Reason: sleep )
Patient Comments:
03/05/2022: last filled 01/22/22, 30 tabs for 60 days from [facility]#[id number]
Rx Instructions:
filled on 04/14/23 #30
ascorbic acid (vitamin C) [Vitamin C] 1,000 mg Tablet
1 g PO QPM
polyethylene glycol 3350 [Miralax] 17 gram Powder In Packet
17 g PO DIRECTED
Rx Instructions:
twice per week
sucralfate 1 gram Tablet
1 g PO BIDPRN PRN (Reason: stomach ulcer)
amlodipine 2.5 mg Tablet
2.5 mg PO QPM
milk thistle 150 mg Capsule
250 mg PO QPM
calcium carbonate [Calcium 600] 600 mg calcium (1,500 mg) Tablet
1,200 mg PO QPM
meclizine 25 mg Tablet
25 mg PO BIDPRN PRN (Reason: vertigo)
hyoscyamine sulfate 0.125 mg Tablet
0.125 mg PO QIDPRN PRN (Reason: intestinal spasms)
losartan 25 mg Tablet
25 mg PO QPM
vitamin B complex Tablet
1 tab PO DAILY
albuterol sulfate 90 mcg/actuation Hfa Aerosol Inhaler
2 puff INHALATION R Q6HPRN PRN (Reason: bronchitis)
docusate sodium 250 mg Capsule
250 mg PO QPM
fluticasone propionate [Flonase Allergy Relief] 50 mcg/actuation [place],Suspension
1 spray INTRANASAL DAILY
cranberry 500 mg Capsule
4,200 mg PO QPM
cinnamon bark [Cinnamon] 500 mg Capsule
500 mg PO QPM
Visbiome 112.5 billion cell Capsule
1 cap PO DAILY
red yeast rice 600 mg Tablet
600 mg PO QPM
calcium carb-mag ox-zinc sulf 333-133-5 mg Tablet
1 tab PO QPM
vitamin D3-vitamin K2 1,250-200 mcg Capsule
1 cap PO QPM
[place] Immune [employer] 45-3.75-50 mg Tablet,Chewable
1 tab PO QPM
oxycodone-acetaminophen [Percocet] 5-325 mg Tablet
1 tab PO Q6HPRN PRN (Reason: pain) Qty: 12 0RF
tamsulosin [Flomax] 0.4 mg Capsule
0.4 mg PO DAILY Qty: 7 0RF
ondansetron 4 mg Tablet,Disintegrating
4 mg PO TIDPRN PRN (Reason: nausea/vomiting) Qty: 12 0RF
fluticasone propion-salmeterol [Wixela Inhub] 250-50 mcg/dose Blister With Device
1 inh INHALATION PRN PRN (Reason: asthma)
Benefiber (guar gum) Packet
2 tbsp PO DIRECTED
Rx Instructions:
three times per week
Myrbetriq 50 mg Tablet Extended Release 24 Hr
50 mg PO DAILY
Referrals:
Armida Gamboa MD [Family Provider] -
Interventions
Interventions:
*Risk Screen - Suicide Last Done: 01/28/25 18:25
*General Assessment Last Done: 01/28/25 16:55
*Neglect/Abuse Screening Last Done: 01/28/25 18:25
*ED- Fall Risk Assessment Last Done: 01/28/25 18:25
*ED COVID-19 Vaccine History Last Done: 01/28/25 18:25
*Nursing Disposition Last Done: 01/28/25 20:28
PB-Ontfww-Tgzloihyej Assessment Last Done: 01/28/25 19:20
Discharge Date and Time
Discharge Date/Time: 01/28/25 20:29
Print Language: LAO
[2025-01-28] MEDS: NSS 500 IV (18:14)
[2025-01-28] MEDS: ZOFRAN 4 MG IV (18:22)
[2025-01-28] MEDS: DILAUDID 0.5 MG IV (18:22)
[2025-01-28 18:25] VITALS: BMI 27.2
[2025-01-28 18:50] LABS: ALT (SGPT) 19 U/L (0-35); AST (SGOT) 19 U/L (14-36); Albumin 4.7 g/dl (3.5-5.0); Alkaline Phosphatase 103 U/L (38-126); Blood Urea Nitrogen 16 mg/dl (7-17); Calcium 10.8 mg/dl (8.4-10.2); Carbon Dioxide 25 mmol/L (22-30); Chloride 108 mmol/L (98-107); Estimated Creatinine Clearance 77 ml/min; Glucose 104 mg/dl (70-99); Sodium 143 mmol/L (135-145); Total Bilirubin 0.7 mg/dl (0.2-1.3); eGFR > 60.00
[2025-01-28 18:51] LABS: % Basophils 0.2 % (0-2); % Eosinophils 1.3 % (0-6); % Immature Granulocytes 0.4 % (0-0.5); % Lymphocytes 14.6 % (20.5-51.1); % Monocytes 7.7 % (1.7-9.3); % Neutrophils 75.8 % (42.2-75.2); Absolute Eosinophils 0.2 10^3/uL (0-0.7); Absolute Immature Granulocytes 0.1 10^3/uL (0-0.05); Absolute Lymphocytes 1.8 10^3/uL (1.2-3.4); Absolute Neutrophils 9.3 10^3/uL (1.4-6.5); Hematocrit 39.9 % (37.0-47.0); Hemoglobin 14.1 g/dL (12.0-16.0); Mean Corp Hgb Conc. 35.3 g/dL (33.0-37.0); Mean Corpuscular Hgb 29.7 pg (27.0-31.0); Mean Corpuscular Volume 84.2 fL (81.0-99.0); Mean Platelet Volume 10.3 fL (7.4-10.4); Nucleated Red Blood Cells % 0 %; Platelet Count 273 10^3/uL (130-400); Red Blood Cell Count 4.74 10^6/uL (4.20-5.40); White Blood Cell Count 12.3 10^3/uL (4.8-10.8)
[2025-01-28 18:55] LABS: Lipase 80 U/L (23-300)
[2025-01-28] MEDS: MOTRIN 600 MG PO (20:23)
[2025-01-28] MEDS: FLAGYL 500 MG PO (20:23)
[2025-01-28] MEDS: OMNICEF 300 MG PO (20:23)
[2025-01-28 20:28] VITALS: BP 150/91
== END 2025-01-28 20:29 | disposition home or self-care (01) ==
LOC: EMR 16:54
PROVIDERS: Registered Nurse; EMERGENCY PHYSICIAN Emergency Medicine; FAMILY PHYSICIAN Emergency Medicine
DX: K57.32 Diverticulitis of large intestine without perforation or abscess without bleeding (principal); I10 Essential (primary) hypertension; J44.89 Other specified chronic obstructive pulmonary disease; Z85.3 Personal history of malignant neoplasm of breast; Z87.891 Personal history of nicotine dependence; Z87.442 Personal history of urinary calculi; J98.4 Other disorders of lung
CPT/HCPCS: 99284; 96374; 96375; 96361; 74177; 80053; 83690; 85025; Q9967

== ENCOUNTER → 2025-02-11 13:27 | Outpatient (REF) | payer MEDICARE, OTHER, SELFPAY | LOC: HWRAD 13:27 | PROVIDERS: ATTENDING PHYSICIAN Emergency Medicine | DX: R05.9 Cough, unspecified (principal) | CPT/HCPCS: 71046 ==

== ENCOUNTER → 2025-02-17 14:18 | Outpatient (REF) | payer MEDICARE, OTHER, SELFPAY | LOC: HWRAD 14:18 | PROVIDERS: ATTENDING PHYSICIAN Family Medicine | DX: R30.9 Painful micturition, unspecified (principal); Z87.442 Personal history of urinary calculi | CPT/HCPCS: 74018; 81003; 81015; 87086 ==

== ENCOUNTER → 2025-08-11 10:31 | Outpatient (REF) | payer MEDICARE, OTHER, SELFPAY | LOC: HWWDC 10:31 | PROVIDERS: ATTENDING PHYSICIAN Internal Medicine Hematology & Oncology; FAMILY PHYSICIAN Hospitalist | DX: Z12.31 Encounter for screening mammogram for malignant neoplasm of breast (principal); Z85.3 Personal history of malignant neoplasm of breast; G25.81 Restless legs syndrome | CPT/HCPCS: 77063; 77067 ==